=== PATIENT | female | born 1940 | race Caucasian/White ===

== ENCOUNTER → 2018-04-29 | Outpatient (CLI) | payer MEDICARE, MEDICAID ==
--- NOTE | 2018-04-29 15:42 | Diagnostic Imaging Report ---
PROCEDURE: CT head without contrast. TECHNIQUE: Multiple contiguous axial images were obtained through the brain without the use of intravenous contrast. INDICATION: Confusion. COMPARISON: No prior studies are available for comparison. FINDINGS: The ventricles and sulci are within normal limits. There is patchy periventricular hypodensity noted consistent with chronic microvascular ischemia. No sulcal effacement, midline shift or hemorrhage is detected. The cisterns are patent. The visualized paranasal sinuses are clear. IMPRESSION: Changes of chronic microvascular ischemia. No acute intracranial process is detected. Dictated by: Dictated on workstation # [id number]
== END ==
LOC: RAD FS 15:03
PROVIDERS: ATTEND Family Medicine
DX: I67.82 Cerebral ischemia (principal); R41.0 Disorientation, unspecified
CPT/HCPCS: 70450

== ENCOUNTER → 2018-05-19 | Outpatient (CLI) | payer MEDICARE, MEDICAID ==
--- NOTE | 2018-05-19 14:37 | Diagnostic Imaging Report ---
INDICATION: Right flank pain. TIME OF EXAM: 2:07 p.m. FINDINGS: No free air is identified. There are surgical clips in the right upper quadrant. Bowel gas pattern is nonobstructive. There is moderate stool throughout the right colon as well as rectum and sigmoid. Small bowel does not appear to be distended. No pathologic calcifications are identified. Postsurgical changes of decompression laminectomy and posterior instrumented fusion in the lumbar spine are noted. IMPRESSION: Moderate stool in the colon suggestive of constipation. The study is otherwise unremarkable. Dictated by: Dictated on workstation # [id number]
== END ==
LOC: RAD FS 14:00
PROVIDERS: ATTEND Family Medicine
DX: R10.9 Unspecified abdominal pain (principal)
CPT/HCPCS: 74019

== ENCOUNTER 2021-07-01 08:54 | Emergency (ER) | payer MEDICARE, MEDICAID ==
[~2021-07-01] VITALS: Ht 157 cm; Wt 68.0 kg
--- NOTE | 2021-07-01 09:21 | ED Fall/Injury ---
General Chief Complaint: Trauma-Non Activation Stated Complaint: FALL/LEFT SHOULDER INJ Nursing Triage Note: [facility] night while getting out of a chair. pt needed help up and has lt shoulder pain. Source: patient (LIMITED HISTORIAN--PT WITH DEMENTIA), prison records Exam Limitations: other (STAFF MEMBER WITH PT DOES NOT KNOW ANY THING ABOUT EVENTS. ) History of Present Illness Date Seen by Provider: July 01, 2021 Time Seen by Provider: 09:03 Initial Comments PT ARRIVES VIA POV WITH STAFF MEMBER FROM [facility] AND [facility] PT HAD AN UNWITNESSED FALL SOMETIME LAST NIGHT--TIME IS UNKNOWN PT DOES NOT KNOW WHAT HAPPENED STAFF MEMBER BELIEVES THAT SHE MIGHT HAVE FALLEN WHEN SHE WAS GETTING OUT OF HER RECLINER. STAFF HAD TO HELP PATIENT UP, AND IS NOT KNOWN HOW LONG SHE HAD LAID ON FLOOR PT MAINLY C/O LEFT SHOULDER PAIN--THIS INFORMATION IS VOLUTEERED BY PT BUT WHEN ASKED SPECIFIC QUESTIONS ABOUT OTHER AREAS OF PAIN, SHE DOES REPORT SHE HAS A HEADACHE AND HER NECK HURTS NO PARESTHESIAS OR MOTOR DEFICITS PT IS ABLE TO STAND FOR TRANSFERS, AND STAFF MEMBER STATES SHE HAS BEEN AMBULATORY SINCE THE FALL. STAFF MEMBER DOES NOT BELIEVE PT HAS HAD ANYTHING FOR PAIN PT WITH DEMENTIA, HISTORY OF UNSTEADY GAIT AND FREQUENT FALLS, GENERALIZED WEAKNESS, CHRONIC BACK PAIN, HX OF RIGHT HIP/INTERTROCHANTERIC FRACTURE WITH NON-UNION, WELL MULTIPLE PSYCH DIAGNOSES. PT WITH LEFT SUBCONJUNCTIVAL HEMORRHAGE, STAFF MEMBER STATES THAT HAS BEEN THERE FOR SEVERAL DAYS, AND IS NO DIFFERENT TODAY--NO KNOWN EYE INJURY PT IS ON ASPIRIN BUT NO OTHER BLOOD THINNERS PCP: DR. LANDA Allergies and Home Medications Allergies Coded Allergies: ciprofloxacin (Verified Allergy, Unknown, 07/01/21) sulfamethoxazole (Verified Allergy, Unknown, 07/01/21) trimethoprim (Verified Allergy, Unknown, 07/01/21) Patient Home Medication List Home Medication List Reviewed: Yes Review of Systems Review of Systems Constitutional: no symptoms reported Eyes: See HPI Respiratory: No short of breath Cardiovascular: No chest pain Gastrointestinal: No abdominal pain, No vomiting Musculoskeletal: see HPI Skin: No rash Psychiatric/Neurological: See HPI, Headache Past Ncjrbwx-Ojlpos-Yyiklb Hx Patient Social History Tobacco Use?: No Substance use?: No Alcohol Use?: No Past Medical History Surgeries: Yes (LOW BACK SURGERY; LEFT HIP REPLACEMENT) Joint Replacement, Orthopedic Cardiac: Yes (AORTIC VALVE DISORDER) Hypertension, Valvular Heart Disease Neurological: Yes (DEMENTIA WITH BEHAVIOR DISTURBANCE) Dementia Genitourinary: Yes Bladder Infection Musculoskeletal: Yes (UNSTEADY GAIT; KYPHOSIS; FREQUENT FALLS;L HIP REPLACEMENT. BACK SURGERY) Chronic Back Pain, Fractures Psychosocial: Yes (OCD; MOOD DISORDER;NARCISSISTIC PERSONALITY;) Sleep Difficulties, Anxiety, Bipolar, Personality Disorder, Schizophrenia, Depression Family Medical History PROTEIN CALORIE MALNUTRITION Physical Exam Vital Signs Vital Signs - First Documented 07/01/21 09:05 Temp 36.4 Pulse 80 Resp 20 B/P (MAP) 141/57 (85) Pulse Ox 95 O2 Delivery Room Air Capillary Refill : Less Than 3 Seconds Height, Weight, BMI Height: '" Weight: lbs. oz. kg; 27.00 BMI Method: General Appearance: WD/WN, no apparent distress HEENT: PERRL/EOMI, TMs normal, pharynx normal, other (LEFT SUBCONJUNCTIVAL HEMORRHAGE. NO HYPHEMA; BILATERAL HEARING AIDS IN PLACE. ) Neck: tender lateral, tender midline, other (MILD DIFFUSE POSTERIOR NECK TENDERNESS. ) Cardiovascular: regular rate, rhythm, no murmur Respiratory: normal breath sounds, no respiratory distress, no accessory muscle use, other (DIFFUSE LEFT CHEST WALL TENDERNESS. NO EXTERNAL EVIDENCE OF TRAUMA, NO CREPITANCE OR SUB Q AIR. NO DEFORMITY.) Gastrointestinal: normal bowel sounds, soft, tenderness (DIFFUSE TENDERNESS--LEFT> RIGHT SIDE. NO EXTERNAL EVIDENCE OF TRAUMA) Back: other Extremities: no pedal edema, no calf tenderness, normal capillary refill, other (DIFFUSE TENDERNESS FROM LEFT SHOULDER TO ELBOW. NO EXTERNAL EVIDENCE OF TRAUMA. DISTAL MOTOR/SENSORY/VASCULAR INTACT. LIMITED ROM AT SHOULDER DUE TO PAIN. D IFFUSE BILATERAL LEG TENDERNESS. NO EXTERNAL EVIDENCE OF TRAUMA. NO SHORTENING OR ROTATION. ROM EQUAL BILATERALLY. DISTAL MOTOR/SENSORY/VASCULAR INTACT. ) Neurologic/Psychiatric: hr assistant II-XII nml as tested, no motor/sensory deficits, al ert, normal mood/affect, disoriented x 3 (VERY POOR MEMORY. ORIENTED TO SELF. KNOWS SHE IS IN HOSPITAL. DISORIENTED TO TIME, SITUATION AND UNABLE TO STATE EVENTS. NORMAL BASELINE WITH DEMENTIA, PER STAFF MEMBER. ) Skin: normal color, warm/dry; No ecchymosis Progress/Results/Core Measures Results/Orders Lab Results Laboratory Tests Test 07/01/21 10:22 07/01/21 11:23 Range/Units Urine Color YELLOW Urine Clarity CLOUDY Urine pH 5.5 5-9 Urine Specific [place] <=1.005 1.016-1.022 Urine Protein NEGATIVE NEGATIVE Urine Glucose (UA) NEGATIVE NEGATIVE Urine Ketones NEGATIVE NEGATIVE Urine Nitrite NEGATIVE NEGATIVE Urine Bilirubin NEGATIVE NEGATIVE Urine Urobilinogen 0.2 < = 1.0 MG/DL Urine Leukocyte Esterase 3+ H NEGATIVE Urine RBC (Auto) TRACE-I H NEGATIVE Urine RBC NONE /HPF Urine WBC >100 H /HPF Urine Squamous Epithelial Cells 0-2 /HPF Urine Crystals NONE /LPF Urine Bacteria LARGE H /HPF Urine Casts NONE /LPF Urine Mucus NEGATIVE /LPF Urine Culture Indicated YES White Blood Count 8.4 4.3-11.0 10^3/uL Red Blood Count 4.34 3.80-5.11 10^6/uL Hemoglobin 12.4 11.5-16.0 g/dL Hematocrit 39 35-52 % Mean Corpuscular Volume 90 80-99 fL Mean Corpuscular Hemoglobin 29 25-34 pg Mean Corpuscular Hemoglobin Concent 32 32-36 g/dL Red Cell Distribution Width 14.3 10.0-14.5 % Platelet Count 284 130-400 10^3/uL Mean Platelet Volume 8.4 L 9.0-12.2 fL Immature Granulocyte % (Auto) 0 % Neutrophils (%) (Auto) 65 42-75 % Lymphocytes (%) (Auto) 21 12-44 % Monocytes (%) (Auto) 8 0-12 % Eosinophils (%) (Auto) 5 0-10 % Basophils (%) (Auto) 1 0-10 % Neutrophils # (Auto) 5.4 1.8-7.8 10^3/uL Lymphocytes # (Auto) 1.7 1.0-4.0 10^3/uL Monocytes # (Auto) 0.7 0.0-1.0 10^3/uL Eosinophils # (Auto) 0.4 H 0.0-0.3 10^3/uL Basophils # (Auto) 0.1 0.0-0.1 10^3/uL Immature Granulocyte # (Auto) 0.0 0.0-0.1 10^3/uL Prothrombin Time 12.8 12.2-14.7 SEC INR Comment 0.9 0.8-1.4 Activated Partial Thromboplast Time 34 24-35 SEC Sodium Level 139 135-145 MMOL/L Potassium Level 4.1 3.6-5.0 MMOL/L Chloride Level 102 98-107 MMOL/L Carbon Dioxide Level 27 21-32 MMOL/L Anion Gap 10 5-14 MMOL/L Blood Urea Nitrogen 16 7-18 MG/DL Creatinine 0.80 0.60-1.30 MG/DL Estimat Glomerular Filtration Rate 74 BUN/Creatinine Ratio 20 Glucose Level 96 70-105 MG/DL Calcium Level 9.5 8.5-10.1 MG/DL Corrected Calcium 9.7 8.5-10.1 MG/DL Total Bilirubin 0.2 0.1-1.0 MG/DL Aspartate Amino Transf (AST/SGOT) 24 5-34 U/L Alanine Aminotransferase (ALT/SGPT) 15 0-55 U/L Alkaline Phosphatase 85 40-136 U/L Total Protein 7.7 6.4-8.2 GM/DL Albumin 3.7 3.2-4.5 GM/DL Micro Results Microbiology 07/01/21 Urine Culture - Final, Complete Escherichia coli Proteus mirabilis My Orders Orders - ROSANNE ZAMORA DO Ct Head/Cervical Spine Wo (07/01/21 09:09) Ct Thoracic/Lumbar Spine Wo (07/01/21 09:09) Monitor-Rhythm Ecg Trace Only (07/01/21 09:09) Chest 1 View, Ap/Pa Only (07/01/21 09:09) Shoulder, Left, 3 Views (07/01/21 09:09) Humerus, Left, 2 Views (07/01/21 09:09) Elbow, Left, 3 Views (07/01/21 09:09) Femur, Left, 2 Views (07/01/21 09:09) Femur, Right, 2 Views (07/01/21 09:09) Tibia/Fibula, Left, 2 Views (07/01/21 09:09) Tibia/Fibula, Right, 2 Views (07/01/21 09:09) Pelvis/Dariel Hips 5> Views (07/01/21 09:09) Ct Chest/Abdomen/Pelvis Wo (07/01/21 09:09) Ed Iv/Invasive Line Start (07/01/21 11:12) Catheter(Urinary) Insert & Ass 03,15 (07/01/21 11:12) Cbc With Automated Diff (07/01/21 11:12) Comprehensive Metabolic Panel (07/01/21 11:12) Protime With Inr (07/01/21 11:12) Partial Thromboplastin Time (07/01/21 11:12) Ua Culture If Indicated (07/01/21 11:12) Urine Culture (07/01/21 10:22) Vital Signs/I&O 07/01/21 07/01/21 09:05 13:21 Temp 36.4 37.2 Pulse 80 80 Resp 20 20 B/P (MAP) 141/57 (85) 151/65 Pulse Ox 95 96 O2 Delivery Room Air Room Air Blood Pressure Mean: 85 Progress Progress Note : Progress Note NO DETERIORATION IN PT'S CONDITION DURING ER STAY PT RESTED QUIETLY Diagnostic Imaging Comments CT SCANS--PER RADIOLOGIST REPORTS AT 1052 CT HEAD/CERVICAL SPINE-- FINDINGS: HEAD: Mild diffuse cerebral volume loss with proportional enlargement of the ventricles and sulci. Mild hypodensities throughout the supratentorial white matter of both cerebral hemispheres. No acute intraparenchymal hemorrhage or abnormal extra-axial fluid collection. Evaluation is somewhat limited secondary to patient motion during the exam. Calcification of the intracranial ICAs. No hyperdense vessel. The calvarium is intact. The mastoid air cells are clear. Mucosal thickening of the paranasal sinuses. Surgical changes of the orbits. C-SPINE: Vertebral body height and alignment are preserved. No acute fracture, dislocation, or destructive osseous process. Multilevel facet hypertrophy without perched facets. Multilevel cervical spondylosis. The paraspinous soft tissues are normal. The visualized thyroid gland is normal. The visualized lung apices are normal. IMPRESSION: 1. No acute intracranial abnormality. Chronic microangiopathy and volume loss. 2. Degenerative changes of cervical spine without acute osseous abnormality. CT THORACIC/LUMBAR SPINE-- FINDINGS: There is mild curvature of the thoracolumbar spine. There is mild compression fracture of the T7 vertebral body with 10% loss of height. There is a compression fracture of the T10 vertebral body with 70% loss of height. Compression fracture of the T12 vertebral body with 30% loss of height. There is a compression fracture of the L2 vertebral body, unchanged from 2014. Surgical changes from lumbar sacral fusion and posterior laminectomy. There is multilevel facet hypertrophy and facet fusion. Multilevel disc desiccation and height loss. There is diffuse thoracolumbar spondylosis. Limited views of the soft tissues show no abnormality. There are vascular calcifications of the aorta without aneurysm. IMPRESSION: 1. Multilevel age indeterminate compression fractures of the thoracic spine involving T7, T10, and T12. Chronic L2 compression fracture. 2. Extensive multilevel degenerative and surgical changes of the thoracolumbar spine without other acute osseous abnormality. CT CHEST/ABDOMEN/PELVIS-- FINDINGS: Thyroid: The thyroid is normal. Mediastinum: Heart size is normal without significant pericardial effusion. Calcifications of the aorta and coronary vessels. Thoracic aorta is normal in caliber. No suspicious lymphadenopathy. Lungs and airways: The lungs are clear without consolidation, pleural effusion, or pneumothorax. There is atelectasis within the lungs. The airways are normal. Solid organs: The liver is normal. The gallbladder is surgically absent. There is no biliary ductal dilation. Pancreas is normal. Spleen is normal. Adrenal glands are normal. There are punctate nonobstructing renal calculi measuring up to 0.2 cm. No hydronephrosis. Bowel: The stomach and small bowel are normal without obstruction. There are a few scattered colonic diverticula. No findings of acute appendicitis. Peritoneum: There is no intraperitoneal free fluid or free air. No suspicious lymphadenopathy. Vasculature: Calcification of the aorta without aneurysm. Musculoskeletal: Degenerative changes of the spine without suspicious osseous lesion or compression fracture. Spinal findings are discussed in more detail on same-day CT of the thoracic and lumbar spine. There is a mildly displaced fracture of the posterior right acetabulum. (Series 9 image 225). Surgical changes from left hip arthroplasty. Pelvis: The uterus and adnexa are normal. The urinary bladder is normal. IMPRESSION: 1. Minimally displaced fracture of the posterior right acetabulum. 2. No other acute abnormality in the chest, abdomen, or pelvis. XRAYS--ALL PER RADIOLOGIST REPORTS AT 1039 CXR-- FINDINGS: Mild enlargement of the cardiac silhouette. Trace left pleural effusion. No focal consolidation or pneumothorax. Degenerative changes of the thoracic spine. Osseous structures are otherwise intact. IMPRESSION: 1. No acute radiographic abnormality in the chest.. 2. Small left pleural effusion. LEFT SHOULDER-- FINDINGS: There is no acute fracture, dislocation, or destructive osseous process. The joint spaces are normal. The soft tissues are normal. IMPRESSION: 1. No acute osseous abnormality of the left shoulder. LEFT HUMERUS-- FINDINGS: There is no acute fracture, dislocation, or destructive osseous process. The joint spaces are normal. The soft tissues are normal. IMPRESSION: 1. No acute osseous abnormality of the left humerus. LEFT ELBOW-- FINDINGS: There is no acute fracture, dislocation, or destructive osseous process. The joint spaces are normal. The soft tissues are normal. IMPRESSION: 1. No acute osseous abnormality of the left elbow. PELVIS WITH BILATERAL HIPS-- FINDINGS: There is no acute fracture, dislocation, or destructive osseous process. No changes of the hips. Surgical changes from left hip arthroplasty. Surgical and degenerative changes of the lumbar spine and sacrum. The soft tissues are normal. Chronic appearing avulsion of the left greater trochanter. IMPRESSION: 1. Surgical and degenerative changes of the pelvis and hips without acute osseous abnormality. LEFT FEMUR-- FINDINGS: There is no acute fracture, dislocation, or destructive osseous process. Chronic appearing avulsion of the greater trochanter. Surgical changes from left hip arthroplasty. The joint spaces are normal. The soft tissues are normal. IMPRESSION: 1. Surgical and degenerative changes of the left femur without acute osseous abnormality. LEFT TIB-FIB-- FINDINGS: There is no acute fracture, dislocation, or destructive osseous process. The joint spaces are normal. The soft tissues are normal. IMPRESSION: 1. No acute osseous abnormality of the left tibia or fibula. RIGHT FEMUR-- FINDINGS: There is no acute fracture, dislocation, or destructive osseous process. The joint spaces are normal. The soft tissues are normal. IMPRESSION: 1. No acute osseous abnormality of the right femur. RIGHT TIB-FIB-- FINDINGS: There is no acute fracture, dislocation, or destructive osseous process. The joint spaces are normal. The soft tissues are normal. IMPRESSION: 1. No acute osseous abnormality of the right tibia or fibula. Reviewed: Reviewed by Me Departure Communication (Admissions) Family Conversation 1139--SPOKE WITH RANJIT, PT'S NIECE AND GUARDIAN. UPDATED HER ON PT'S CONDITION AND OF NEED FOR TRANSFER. 1055--CALLED [facility]. 1103--SPOKE WITH DR. RAZO, PHYSICIAN. ADVISES TO CONTACT ORTHOPEDIC SURGEON CHAIRMAN & CEO, DR. MAYA. 1106--DR. MAYA HAS REPORTED THAT DR. KHAN IS OUT ALL WEEK AND IS THE ONLY ORTHOPEDIC SURGEON THAT DOES ACETABULAR FRACTURES 1107--SPOKE WITH DR. DEGROOT, HE VERIFIES THAT HE DOES NOT DO ACETABULAR FRACTURES. SUGGESTS [facility] OR POSSIBLY [facility]. 1108--CALLED [facility]. WILL CALL BACK. IMAGES CLOUDED TO THEM. 1131--[facility] CALLED BACK. DR. NAVA, TRAUMA SURGEON HAS ACCEPTED PT. 1147--[facility] CALLED BACK WITH BED ASSIGNMENT. EMS CONTACTED FOR TRANSPORT 1308--EMS HERE FOR TRANSPORT Impression Primary Impression: Unwitnessed fall Additional Impressions: Left shoulder pain Closed right acetabular fracture Multiple contusions Disposition: 02 XFER [facility]M HOSP Condition: Stable Transfer Transfer Reason: Exceeds level of care Transfer Facility: [place], [place] Method of Transfer: EMS Departure-Patient Inst. Referrals: MOUSTAPHA LANDA MD (PCP/Family) Primary Care Physician ROSANNE ZAMORA DO July 01, 2021 09:21
--- NOTE | 2021-07-01 10:12 | Diagnostic Imaging Report ---
EXAMINATION: Chest 1 view HISTORY: Chest pain after injury COMPARISON: None available. FINDINGS: Mild enlargement of the cardiac silhouette. Trace left pleural effusion. No focal consolidation or pneumothorax. Degenerative changes of the thoracic spine. Osseous structures are otherwise intact. IMPRESSION: 1. No acute radiographic abnormality in the chest.. 2. Small left pleural effusion. Dictated by: Dictated on workstation # [id number]
--- NOTE | 2021-07-01 10:15 | Diagnostic Imaging Report ---
EXAMINATION: Left shoulder radiograph EXAM DATE: 07/01/2021 COMPARISON: None available. HISTORY: Left shoulder pain TECHNIQUE: 3 views of the left shoulder FINDINGS: There is no acute fracture, dislocation, or destructive osseous process. The joint spaces are normal. The soft tissues are normal. IMPRESSION: 1. No acute osseous abnormality of the left shoulder. Dictated by: Dictated on workstation # [id number]
--- NOTE | 2021-07-01 10:15 | Diagnostic Imaging Report ---
EXAMINATION: Left humerus radiograph EXAM DATE: 07/01/2021 COMPARISON: None available. HISTORY: arm pain TECHNIQUE: 2 views of the left humerus FINDINGS: There is no acute fracture, dislocation, or destructive osseous process. The joint spaces are normal. The soft tissues are normal. IMPRESSION: 1. No acute osseous abnormality of the left humerus. Dictated by: Dictated on workstation # [id number]
--- NOTE | 2021-07-01 10:16 | Diagnostic Imaging Report ---
EXAMINATION: Pelvis and bilateral hip radiograph EXAM DATE: 07/01/2021 COMPARISON: None available. HISTORY: Pelvic pain after fall TECHNIQUE: 5 views of the pelvis and hips FINDINGS: There is no acute fracture, dislocation, or destructive osseous process. No changes of the hips. Surgical changes from left hip arthroplasty. Surgical and degenerative changes of the lumbar spine and sacrum. The soft tissues are normal. Chronic appearing avulsion of the left greater trochanter. IMPRESSION: 1. Surgical and degenerative changes of the pelvis and hips without acute osseous abnormality. Dictated by: Dictated on workstation # [id number]
--- NOTE | 2021-07-01 10:16 | Diagnostic Imaging Report ---
EXAMINATION: Left elbow radiograph EXAM DATE: 07/01/2021 COMPARISON: None available. HISTORY: Elbow pain TECHNIQUE: 3 views of the left elbow FINDINGS: There is no acute fracture, dislocation, or destructive osseous process. The joint spaces are normal. The soft tissues are normal. IMPRESSION: 1. No acute osseous abnormality of the left elbow. Dictated by: Dictated on workstation # [id number]
--- NOTE | 2021-07-01 10:17 | Diagnostic Imaging Report ---
EXAMINATION: Left femur radiograph EXAM DATE: 07/01/2021 COMPARISON: None available. HISTORY: leg pain TECHNIQUE: 4 views of the femur FINDINGS: There is no acute fracture, dislocation, or destructive osseous process. Chronic appearing avulsion of the greater trochanter. Surgical changes from left hip arthroplasty. The joint spaces are normal. The soft tissues are normal. IMPRESSION: 1. Surgical and degenerative changes of the left femur without acute osseous abnormality. Dictated by: Dictated on workstation # [id number]
--- NOTE | 2021-07-01 10:32 | Diagnostic Imaging Report ---
EXAMINATION: Right tibia and fibula radiograph EXAM DATE: 07/01/2021 COMPARISON: None available. HISTORY: leg pain TECHNIQUE: 2 views of the right tibia and fibula FINDINGS: There is no acute fracture, dislocation, or destructive osseous process. The joint spaces are normal. The soft tissues are normal. IMPRESSION: 1. No acute osseous abnormality of the right tibia or fibula. Dictated by: Dictated on workstation # [id number]
--- NOTE | 2021-07-01 10:32 | Diagnostic Imaging Report ---
EXAMINATION: Left tibia and fibula radiograph EXAM DATE: 07/01/2021 COMPARISON: None available. HISTORY: leg pain TECHNIQUE: 2 views of the left tibia and fibula FINDINGS: There is no acute fracture, dislocation, or destructive osseous process. The joint spaces are normal. The soft tissues are normal. IMPRESSION: 1. No acute osseous abnormality of the left tibia or fibula. Dictated by: Dictated on workstation # [id number]
--- NOTE | 2021-07-01 10:32 | Diagnostic Imaging Report ---
EXAMINATION: Right femur radiograph EXAM DATE: 07/01/2021 COMPARISON: None available. HISTORY: leg pain TECHNIQUE: 4 views of the right femur FINDINGS: There is no acute fracture, dislocation, or destructive osseous process. The joint spaces are normal. The soft tissues are normal. IMPRESSION: 1. No acute osseous abnormality of the right femur. Dictated by: Dictated on workstation # [id number]
--- NOTE | 2021-07-01 10:33 | Diagnostic Imaging Report ---
EXAMINATION: CT head and CT cervical spine without contrast. TECHNIQUE: Multiple contiguous axial images were obtained through the brain and cervical spine without the use of intravenous contrast. Sagittal and coronal reformations through the cervical spine were then performed. All CT scans use one or more of the following dose optimizing techniques: automated exposure control, MA and/or KvP adjustment based on patient size and exam type or iterative reconstruction. HISTORY: Head and neck pain after fall COMPARISON: 04/29/2018 FINDINGS: HEAD: Mild diffuse cerebral volume loss with proportional enlargement of the ventricles and sulci. Mild hypodensities throughout the supratentorial white matter of both cerebral hemispheres. No acute intraparenchymal hemorrhage or abnormal extra-axial fluid collection. Evaluation is somewhat limited secondary to patient motion during the exam. Calcification of the intracranial ICAs. No hyperdense vessel. The calvarium is intact. The mastoid air cells are clear. Mucosal thickening of the paranasal sinuses. Surgical changes of the orbits. C-SPINE: Vertebral body height and alignment are preserved. No acute fracture, dislocation, or destructive osseous process. Multilevel facet hypertrophy without perched facets. Multilevel cervical spondylosis. The paraspinous soft tissues are normal. The visualized thyroid gland is normal. The visualized lung apices are normal. IMPRESSION: 1. No acute intracranial abnormality. Chronic microangiopathy and volume loss. 2. Degenerative changes of cervical spine without acute osseous abnormality. Dictated by: Dictated on workstation # [id number]
--- NOTE | 2021-07-01 10:37 | Diagnostic Imaging Report ---
EXAMINATION: CT thoracic and lumbar spine without contrast. TECHNIQUE: Multiple contiguous axial images were obtained through the thoracic and lumbar spine without the use of intravenous contrast. Sagittal and coronal reformations were then performed. All CT scans use one or more of the following dose optimizing techniques: automated exposure control, MA and/or KvP adjustment based on patient size and exam type or iterative reconstruction. HISTORY: Back pain after fall COMPARISON: MRI lumbar spine 03/24/2013 FINDINGS: There is mild curvature of the thoracolumbar spine. There is mild compression fracture of the T7 vertebral body with 10% loss of height. There is a compression fracture of the T10 vertebral body with 70% loss of height. Compression fracture of the T12 vertebral body with 30% loss of height. There is a compression fracture of the L2 vertebral body, unchanged from 2014. Surgical changes from lumbar sacral fusion and posterior laminectomy. There is multilevel facet hypertrophy and facet fusion. Multilevel disc desiccation and height loss. There is diffuse thoracolumbar spondylosis. Limited views of the soft tissues show no abnormality. There are vascular calcifications of the aorta without aneurysm. IMPRESSION: 1. Multilevel age indeterminate compression fractures of the thoracic spine involving T7, T10, and T12. Chronic L2 compression fracture. 2. Extensive multilevel degenerative and surgical changes of the thoracolumbar spine without other acute osseous abnormality. Dictated by: Dictated on workstation # [id number]
--- NOTE | 2021-07-01 10:51 | Diagnostic Imaging Report ---
EXAMINATION: CT chest, abdomen and pelvis without intravenous contrast. TECHNIQUE: Multiple contiguous axial images were obtained through the chest, abdomen and pelvis without intravenous contrast. All CT scans use one or more of the following dose optimizing techniques: automated exposure control, MA and/or KvP adjustment based on patient size and exam type or iterative reconstruction. HISTORY: Chest and abdominal pain after injury COMPARISON: None available. FINDINGS: Thyroid: The thyroid is normal. Mediastinum: Heart size is normal without significant pericardial effusion. Calcifications of the aorta and coronary vessels. Thoracic aorta is normal in caliber. No suspicious lymphadenopathy. Lungs and airways: The lungs are clear without consolidation, pleural effusion, or pneumothorax. There is atelectasis within the lungs. The airways are normal. Solid organs: The liver is normal. The gallbladder is surgically absent. There is no biliary ductal dilation. Pancreas is normal. Spleen is normal. Adrenal glands are normal. There are punctate nonobstructing renal calculi measuring up to 0.2 cm. No hydronephrosis. Bowel: The stomach and small bowel are normal without obstruction. There are a few scattered colonic diverticula. No findings of acute appendicitis. Peritoneum: There is no intraperitoneal free fluid or free air. No suspicious lymphadenopathy. Vasculature: Calcification of the aorta without aneurysm. Musculoskeletal: Degenerative changes of the spine without suspicious osseous lesion or compression fracture. Spinal findings are discussed in more detail on same-day CT of the thoracic and lumbar spine. There is a mildly displaced fracture of the posterior right acetabulum. (Series 9 image 225). Surgical changes from left hip arthroplasty. Pelvis: The uterus and adnexa are normal. The urinary bladder is normal. IMPRESSION: 1. Minimally displaced fracture of the posterior right acetabulum. 2. No other acute abnormality in the chest, abdomen, or pelvis. Dictated by: Dictated on workstation # [id number]
[2021-07-01 11:24] LABS: BILIRUBIN,URINE NEGATIVE (NEGATIVE); CLARITY,URINE CLOUDY; COLOR,URINE YELLOW; GLUCOSE, URINE (UA) NEGATIVE (NEGATIVE); KETONES,URINE NEGATIVE (NEGATIVE); LEUKOCYTE ESTERASE ,URINE 3+ (NEGATIVE); NITRITE,URINE NEGATIVE (NEGATIVE); PH,URINE 5.5 (5-9); PROTEIN,URINE NEGATIVE (NEGATIVE)
[2021-07-01 11:31] LABS: BASOPHILS # (AUTO) 0.1 10^3/uL (0.0-0.1); BASOPHILS % (AUTO) 1 % (0-10); EOSINOPHILS # (AUTO) 0.4 10^3/uL (0.0-0.3); EOSINOPHILS % (AUTO) 5 % (0-10); HEMATOCRIT 39 % (35-52); HEMOGLOBIN 12.4 g/dL (11.5-16.0); LYMPHOCYTES # (AUTO) 1.7 10^3/uL (1.0-4.0); LYMPHOCYTES % (AUTO) 21 % (12-44); MEAN CORPUSCULAR HEMOGLOBIN 29 pg (25-34); MEAN CORPUSCULAR HGB CONC 32 g/dL (32-36); MEAN CORPUSCULAR VOLUME 90 fL (80-99); MEAN PLATELET VOLUME 8.4 fL (9.0-12.2); MONOCYTES # (AUTO) 0.7 10^3/uL (0.0-1.0); MONOCYTES % (AUTO) 8 % (0-12); NEUTROPHILS # (AUTO) 5.4 10^3/uL (1.8-7.8); NEUTROPHILS % (AUTO) 65 % (42-75); PLATELET COUNT 284 10^3/uL (130-400); WHITE BLOOD COUNT 8.4 10^3/uL (4.3-11.0)
[2021-07-01 11:41] LABS: ALBUMIN 3.7 GM/DL (3.2-4.5); POTASSIUM 4.1 MMOL/L (3.6-5.0)
[2021-07-01 11:43] LABS: CALCIUM 9.5 MG/DL (8.5-10.1); INR 0.9 (0.8-1.4); PROTHROMBIN TIME PATIENT 12.8 SEC (12.2-14.7)
[2021-07-01 11:44] LABS: TOTAL PROTEIN 7.7 GM/DL (6.4-8.2)
[2021-07-01 11:45] LABS: BACTERIA,URINE LARGE /HPF; SQUAMOUS EPITHELIAL CELL,UR 0-2 /HPF; WBC,URINE >100 /HPF
[2021-07-01 11:45] LABS: BILIRUBIN,TOTAL 0.2 MG/DL (0.1-1.0)
[2021-07-01 11:47] LABS: CREATININE SERUM 0.8 MG/DL (0.60-1.30)
[2021-07-01 13:21] VITALS: BP 151/65
== END 2021-07-01 13:21 | disposition short-term general hospital (02) ==
LOC: EDUNIT# 08:54 → ER 08:57
DX: S32.401A Unspecified fracture of right acetabulum, initial encounter for closed fracture (principal); T14.8XXA Other injury of unspecified body region, initial encounter; M25.512 Pain in left shoulder; M54.2 Cervicalgia; H11.32 Conjunctival hemorrhage, left eye; R29.6 Repeated falls; F03.91 Unspecified dementia, unspecified severity, with behavioral disturbance; Z87.81 Personal history of (healed) traumatic fracture; Z79.82 Long term (current) use of aspirin; W19.XXXA Unspecified fall, initial encounter; Y92.129 Unspecified place in nursing home as the place of occurrence of the external cause
CPT/HCPCS: 36415; 51702; 70450; 71045; 71250; 72125; 72128; 72131; 73030; 73060; 73080; 73523; 73552; 73590; 74176; 80053; 81000; 85025; 85610; 85730; 87077; 87088; 87186; 93041

== ENCOUNTER 2022-06-15 19:31 | Emergency (ER) | payer MEDICARE, MEDICAID ==
[~2022-06-15] VITALS: Ht 162 cm; Wt 63.0 kg
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
--- NOTE | 2022-06-15 20:37 | Diagnostic Imaging Report ---
PROCEDURE: CT head and CT cervical spine without contrast. TECHNIQUE: Multiple contiguous axial images were obtained through the brain and cervical spine without the use of intravenous contrast. Sagittal and coronal reformations through the cervical spine were then performed. Auto Exposure Controls were utilized during the CT exam to meet ALARA standards for radiation dose reduction. INDICATION: Head and neck pain status post fall. COMPARISON: 07/01/2021. FINDINGS: CT HEAD: The ventricles and cortical sulci are diffusely prominent, compatible with age-related volume loss. There are confluent areas of abnormal low attenuation in the periventricular white matter. This is consistent with chronic small vessel ischemic changes. There is no midline shift or mass-effect. No acute intra-axial hemorrhage is seen. There is no abnormal areas of increased or decreased density to suggest acute hemorrhage or edema. No extra-axial mass or collection is present. The bony calvarium is intact. The visualized paranasal sinuses are unremarkable. The mastoid air cells are clear. CT CERVICAL SPINE: Static alignment of the cervical spine is maintained. There is no significant anterolisthesis or retrolisthesis. There is no evidence of jumped facets. Vertebral body heights are maintained. There is no acute fracture. There are advanced multilevel degenerative changes consistent with intervertebral disc height loss with anterior and posterior endplate osteophyte formations. These changes appear greatest at the C5-C6 level. Evaluation of the prevertebral and paravertebral soft tissue structures demonstrate soft tissue emphysema within the right parotid gland. This was present previously. Note is also made of calcified carotid atherosclerosis. Included portions of the lung apices are clear. IMPRESSION: 1. No acute intracranial abnormality. No CT evidence of mass, acute infarct or intracranial hemorrhage. 2. Chronic small vessel ischemic changes in the deep white matter. 3. Advanced multilevel degenerative changes of the cervical spine, but no new acute fracture or dislocation. 4. Redemonstration of air within the right parotid gland. This may be on the basis of reflux of air from the parotid duct, as similar appearance was present on prior study. Dictated by: Dictated on workstation # [id number]
--- NOTE | 2022-06-15 20:43 | Diagnostic Imaging Report ---
PROCEDURE: CT thoracic and lumbar spine without contrast. TECHNIQUE: Multiple contiguous axial images were obtained through the thoracic and lumbar spine without the use of intravenous contrast. Sagittal and coronal reformations were then performed. All CT scans use one or more of the following dose optimizing techniques: automated exposure control, MA and/or KvP adjustment based on patient size and exam type or iterative reconstruction. INDICATION: Back pain status post fall. COMPARISON: 07/01/2021 FINDINGS: CT THORACIC SPINE: Chronic compression deformities of T10 and T12 are again identified. There is no new acute compression deformity of the remainder of the thoracic spine. Remaining vertebral body heights are preserved. Static alignment is maintained. There is no significant anterolisthesis or retrolisthesis. There is no evidence of jumped facets. Moderate multilevel degenerative changes are noted and consistent with intervertebral disc height loss with endplate osteophyte formations and multilevel facet arthropathy. Prevertebral and paravertebral soft tissue structures are unremarkable. Included portions of the lungs are clear. CT LUMBAR SPINE: Patient is status post previous laminectomy and posterior fusion of L2-S1. Bilateral interpedicular screws and posterior fusion rods remain intact. No unexpected radiopaque foreign body is seen. Intervertebral disc spacers are also present and appear appropriately positioned. Static alignment of the lumbar spine is maintained. There is no significant anterolisthesis or retrolisthesis There is no evidence of jumped facets. Vertebral body heights are preserved. There is no acute fracture. Advanced multilevel degenerative changes are noted. Prevertebral and paravertebral soft tissue structures are unremarkable. Note is made of nonobstructive left renal calculus. IMPRESSION: 1. Chronic compression deformities of T10 and T12, but no new acute fracture or dislocation of the thoracic or lumbar spine. 2. Postsurgical changes to the lumbar spine, as above. No evidence of hardware compromise. 3. Advanced multilevel degenerative changes of the thoracic and lumbar spine. Dictated by: Dictated on workstation # [id number]
--- NOTE | 2022-06-15 20:53 | Diagnostic Imaging Report ---
INDICATION: Chest pain status post fall. COMPARISON: CT chest from earlier the same day. FINDINGS: Single frontal view of the chest demonstrates moderate cardiomegaly. Pulmonary vasculature is within normal limits. The lungs are well aerated and clear. No large pleural effusion or pneumothorax is seen. The visualized osseous structures show no acute abnormality. IMPRESSION: Moderate cardiomegaly, but no evidence of failure or focal infiltrate. Dictated by: Dictated on workstation # [id number]
--- NOTE | 2022-06-15 20:54 | Diagnostic Imaging Report ---
INDICATION: Pelvic pain. COMPARISON: None. FINDINGS: Single AP view of the pelvis was obtained. There are expected postsurgical changes of previous left total hip arthroplasty. There is appropriate anatomic alignment of the femoral component in relation to the acetabular component. Acetabular component appears well seated. The stem of the femoral component is located centrally in the medullary cavity. There is no periprosthetic fracture. No acute fracture or dislocation is identified. No unexpected radiopaque foreign body is identified. IMPRESSION: Expected postsurgical changes of previous left total hip arthroplasty. No evidence of hardware compromise. No new acute osseous abnormality. Dictated by: Dictated on workstation # [id number]
--- NOTE | 2022-06-15 21:27 | Diagnostic Imaging Report ---
PROCEDURE: CT chest, abdomen and pelvis without contrast. TECHNIQUE: Multiple contiguous axial images were obtained through the chest, abdomen, and pelvis without the use of intravenous contrast. Auto Exposure Controls were utilized during the CT exam to meet ALARA standards for radiation dose reduction. INDICATION: Pain status post fall. COMPARISON: 07/01/2021. FINDINGS: CT CHEST: Cardiomediastinal structures show moderate cardiomegaly. There is moderate scattered calcified aortic and coronary atherosclerosis. There is no large pericardial effusion or evidence of mediastinal hemorrhage. No pathologically enlarged or morphologically abnormal adenopathy is seen within the mediastinum, manuel or axilla. Evaluation of the lung ackerman is degraded by motion artifact. There is no focal consolidation, large effusion or pneumothorax. No new suspicious pulmonary nodule or mass is seen. Sternotomy wires are noted. Osseous structures show no acute abnormality. CT ABDOMEN: Normal appendix is identified. Small bowel loops are nondistended. Punctate bilateral nonobstructive renal calculi are seen. Otherwise, the kidneys, adrenal glands, spleen and liver have an unremarkable noncontrast CT appearance. There is advanced atrophy of the pancreas. Pancreas is otherwise unremarkable as well. There is no loculated fluid collection, free fluid or free air within the abdomen. No abnormal mesenteric or retroperitoneal adenopathy is seen. Osseous structures show no acute abnormality. 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 There is thickened appearance of the urinary bladder wall. Urinary bladder is noted to be only mildly distended. Urinary bladder wall measures 1 cm in thickness. There is no loculated fluid collection, free fluid or free air within the pelvis. No abnormal adenopathy is seen. Osseous structures show no acute abnormality. IMPRESSION: 1. No acute cardiopulmonary process. 2. No acute abnormality within the abdomen. 3. Punctate bilateral nonobstructive renal calculi. 4. Cardiomegaly. 5. Thickened appearance of the wall of the urinary bladder. This may be exaggerated by under distention. Similar appearance may also be seen with detrusor hypertrophy from chronic bladder outlet obstruction as well as cystitis. Clinical correlation is advised. Dictated by: Dictated on workstation # [id number]
[2022-06-15 21:37] VITALS: BP 134/69
== END 2022-06-15 21:58 ==
LOC: EDUNIT# 19:31 → ER 19:35
DX: S16.1XXA Strain of muscle, fascia and tendon at neck level, initial encounter (principal); S09.90XA Unspecified injury of head, initial encounter; F03.90 Unspecified dementia, unspecified severity, without behavioral disturbance, psychotic disturbance, mood disturbance, and anxiety; R26.81 Unsteadiness on feet; G89.29 Other chronic pain; R29.6 Repeated falls; Z98.890 Other specified postprocedural states; W18.30XA Fall on same level, unspecified, initial encounter; W22.8XXA Striking against or struck by other objects, initial encounter
CPT/HCPCS: 70450; 71045; 71250; 72125; 72128; 72131; 72170; 74176